=== PATIENT | female | born 1940 | race Caucasian/White ===

== ENCOUNTER 2018-02-13 09:09 | Emergency (ER) | payer MEDICARE, OTHER ==
--- NOTE | 2018-02-13 09:19 | EDM.PDOC ---
ED HPI GENERAL MEDICAL PROBLEM - General Chief Complaint: Respiratory Problem Stated Complaint: COUGH ISSUES Time Seen by Provider: 02/13/18 09:16 Source of Information: Reports: Patient History Limitations: Reports: No Limitations - History of Present Illness INITIAL COMMENTS - FREE TEXT/NARRATIVE: History of present illness: []Patient's was seen in the ED and this past weekend for a cough and was diagnosed with bronchitis. Patient started coughing last night with the same symptoms, however, denies any shortness of breath, fevers, chills or chest pain. Review of systems: As per history of present illness and below otherwise all systems reviewed and negative. Past medical history: As per history of present illness and as reviewed below otherwise noncontributory. Surgical history: As per history of present illness and as reviewed below otherwise noncontributory. Social history: No reported history of drug or alcohol abuse. Family history: As per history of present illness and as reviewed below otherwise noncontributory. Physical exam: General: Well developed, well nourished in NAD HEENT: Atraumatic, normocephalic, pupils reactive, negative for conjunctival pallor or scleral icterus, mucous membranes moist, throat clear, neck supple, nontender, trachea midline. Lungs: Basilar rhonchi noted on auscultation, breath sounds equal bilaterally, chest nontender, no respiratory distress or accessory muscle use. Heart: S1S2, regular, negative for clicks, rubs, or JVD. Abdomen: Soft, nondistended, nontender. Negative for masses or hepatosplenomegaly. Negative for costovertebral tenderness. Pelvis: Stable nontender. Genitourinary: Deferred. Rectal: Deferred. Extremities: Atraumatic, negative for cords or calf pain. Neurovascular unremarkable. Neuro: Awake, alert, oriented. Cranial nerves II through XII unremarkable. Cerebellum unremarkable. Motor and sensory unremarkable throughout. Exam nonfocal. Diagnostics: []Chest x-ray negative for infiltrate or effusion, vital signs are stable Therapeutics: [] Impression: []Acute bronchitis Plan: []Ankit Tavera, follow-up with primary care Definitive disposition and diagnosis as appropriate pending reevaluation and review of above. - Related Data Allergies Allergy/AdvReac Type Severity Reaction Status Date / Time Penicillins Allergy Hives Verified 02/13/18 09:20 Home Meds: Home Meds Aspirin 81 mg PO DAILY 02/13/18 [History] Azithromycin [Zithromax] 250 mg PO DAILY #6 tab 02/13/18 [Rx] Benzonatate [Tessalon Perle] 100 mg PO TID PRN #20 capsule 02/13/18 [Rx] Calcium Carbonate [Calcium] 500 mg PO DAILY 02/13/18 [History] Cholecalciferol (Vitamin D3) [Vitamin D] 1,000 units PO DAILY 02/13/18 [History] Fish Oil/[place]-3 Fatty Acids [Fish Oil 1,000 MG] 2 tab PO DAILY 02/13/18 [ History] Levothyroxine [Sythroid] 100 mcg PO DAILY 02/13/18 [History] Lovastatin [Altoprev] 40 mg PO DAILY 02/13/18 [History] Magnesium 250 mg PO DAILY 02/13/18 [History] Oxybutynin [Oxybutynin ER] 5 mg PO DAILY 02/13/18 [History] Potassium Chloride 10 meq PO DAILY 02/13/18 [History] Monett's Wort 300 mg PO BID 02/13/18 [History] ED ROS GENERAL - Review of Systems Review Of Systems: ROS reveals no pertinent complaints other than HPI. ED EXAM, GENERAL - Physical Exam Exam: See Below (See history of present illness) Course - Vital Signs Last Recorded V/S: Last Vital Signs Temp 98.1 F 02/13/18 09:14 Pulse 99 02/13/18 10:05 Resp 20 02/13/18 10:05 BP 110/68 02/13/18 10:05 Pulse Ox 92 L 02/13/18 10:05 Departure - Departure Time of Disposition: 09:59 Disposition: Home, Self-Care 01 Condition: Good Clinical Impression: Acute bronchitis Qualifiers: Bronchitis organism: unspecified organism Qualified Code(s): J20.9 - Acute bronchitis, unspecified - Discharge Information *PRESCRIPTION DRUG MONITORING PROGRAM REVIEWED*: Not Applicable Prescriptions: Azithromycin [Zithromax] 250 mg PO DAILY #6 tab Benzonatate [Tessalon Perle] 100 mg PO TID PRN #20 capsule PRN Reason: Cough Instructions: Acute Bronchitis, Adult, [id number] Referrals: PCP,Not In Area [Primary Care Provider] - Forms: ED Department Discharge Additional Instructions: The following information is given to patients seen in the emergency department who are being discharged to home. This information is to outline your options for follow-up care. We provide all patients seen in our emergency department with a follow-up referral. The need for follow-up, as well as the timing and circumstances, are variable depending upon the specifics of your emergency department visit. If you don't have a primary care physician on staff, we will provide you with a referral. We always advise you to contact your personal physician following an emergency department visit to inform them of the circumstance of the visit and for follow-up with them and/or the need for any referrals to a consulting specialist. The emergency department will also refer you to a specialist when appropriate. This referral assures that you have the opportunity for follow-up care with a specialist. All of these measure are taken in an effort to provide you with optimal care, which includes your follow-up. Under all circumstances we always encourage you to contact your private physician who remains a resource for coordinating your care. When calling for follow-up care, please make the office aware that this follow-up is from your recent emergency room visit. If for any reason you are refused follow-up, please contact the [facility] Emergency Department at and asked to speak to the emergency department charge nurse. Ayse and Ankit Zamora as directed follow-up with PMD return if symptoms worsen or change. [facility] [address] [place] [phone]
--- NOTE | 2018-02-13 09:47 | CR ---
EXAMINATION: Two-view chest (PA and Lateral views). HISTORY: Shortness of breath. FINDINGS: The trachea is midline. The cardiomediastinal silhouette is within normal limits. No pulmonary infilt rates, effusions or pneumothorax. Aorta is mildly ectatic. Mild wedging of a lower thoracic vertebra, likely T12. IMPRESSION: No acute cardiopulmonary process.
== END 2018-02-13 10:09 | disposition home or self-care (01) ==
LOC: MW.ED 09:09
DX: J20.9 Acute bronchitis, unspecified (principal); Z88.0 Allergy status to penicillin; Z79.82 Long term (current) use of aspirin; Z79.899 Other long term (current) drug therapy
CPT/HCPCS: 71046; 71046-26; 99283